=== PATIENT | male | born 1950 | race Asian ===

== ENCOUNTER 2018-11-03 06:23 | Day surgery (SDC) | payer OTHER ==
[~2018-11-03] VITALS: Ht 165.1 cm; Wt 64.1 kg
[~2018-11-03 06:23] MED LIST: SODIUM CHLORIDE 0.9% 1,000 ML IV ONE
[2018-11-03] MEDS ORDERED: LIDOCAINE 4% 50 ML SOLUTION TP ONE (06:24)
[2018-11-03] MEDS ORDERED: LIDOCAINE 2% 30 ML JELLY TP ONE (06:24)
[2018-11-03] MEDS ORDERED: ALBUTEROL SULFATE 2.5 MG/0.5 ML NEB SOLUTION NEB ONE (06:24)
[2018-11-03] MEDS ORDERED: BENZOCAINE 20% 50 MCG/SPRAY 57 GM TP ONE (06:24)
[2018-11-03] MEDS ORDERED: SODIUM CHLORIDE 0.9% 1,000 ML IV ONE (07:00)
[2018-11-03] MEDS ORDERED: LOSA1TAB37 PO (07:03)
[2018-11-03] MEDS ORDERED: IPRA4AER IH (07:03)
[2018-11-03] MEDS ORDERED: MOME13HF IH (07:03)
[2018-11-03] MEDS ORDERED: MIDAZOLAM HCL 2 MG/2 ML VIAL ONE (07:33)
[2018-11-03] MEDS ORDERED: FentaNYL CITRATE-PF 100 MCG/2 ML VIAL ONE (07:33)
[2018-11-03] MEDS ORDERED: MethylPREDNISolone SOD SUCC 125 MG/2 ML VIAL IVP ONE ×2 (09:00)
[2018-11-03] MEDS ORDERED: MethylPREDNISolone SOD SUCC 125 MG/2 ML VIAL ONE (09:03)
[2018-11-03] MEDS ORDERED: OXYGEN THERAPY IH SCH ×2 (20:00)
== END 2018-11-03 10:40 | disposition home or self-care (01) ==
LOC: SURGERY 06:23
PROVIDERS: ATTEND Internal Medicine Critical Care Medicine
DX: J38.4 Edema of larynx (principal); B37.0 Candidal stomatitis; J45.909 Unspecified asthma, uncomplicated; J98.8 Other specified respiratory disorders; I10 Essential (primary) hypertension; Z79.899 Other long term (current) drug therapy; Z98.890 Other specified postprocedural states
CPT/HCPCS: 31623; 31624; 71045; 87015; 87070; 87101; 87205; 87206; 87220; 88108; 88312; J2250; J2930; J3010; J7030

== ENCOUNTER 2021-11-13 05:52 | Day surgery (SDC) | payer MEDICARE, OTHER ==
[~2021-11-13] VITALS: Ht 168 cm; Wt 62.7 kg
[~2021-11-13 05:52] MED LIST changes: +IPRA4AER IH; +LOSA1TAB37 PO; +MOME13HF IH; -SODIUM CHLORIDE 0.9% 1,000 ML IV ONE
[2021-11-13] MEDS ORDERED: LIDOCAINE 2% 11 ML JELLY TP ONE (05:53)
[2021-11-13] MEDS ORDERED: ALBUTEROL SULFATE 2.5 MG/0.5 ML NEB SOLUTION NEB ONE (05:53)
[2021-11-13] MEDS ORDERED: LIDOCAINE 4% 50 ML SOLUTION TP ONE (05:53)
[2021-11-13] MEDS ORDERED: BENZOCAINE 20% 50 MCG/SPRAY 57 GM TP ONE (05:53)
[2021-11-13] MEDS ORDERED: SODIUM CHLORIDE 0.9% 1,000 ML IV ONE (06:45)
[2021-11-13 06:58] LABS: COVID AG,FIA SOURCE NASAL SWAB
[2021-11-13] MEDS ORDERED: MIDAZOLAM HCL 2 MG/2 ML VIAL ONE (07:57)
[2021-11-13] MEDS ORDERED: FentaNYL CITRATE PF 100 MCG/2 ML VIAL ONE (07:58)
[2021-11-13] MEDS ORDERED: MethylPREDNISolone SOD SUCC 125 MG/2 ML VIAL IVP ONE ×2 (09:30→10:00)
[2021-11-13] MEDS ORDERED: MethylPREDNISolone SOD SUCC 125 MG/2 ML VIAL ONE (09:33)
[2021-11-13] MEDS ORDERED: OXYGEN THERAPY IH SCH (20:00)
== END 2021-11-13 12:05 | disposition home or self-care (01) ==
LOC: SURGERY 05:52
PROVIDERS: ATTEND Internal Medicine Critical Care Medicine
DX: J38.4 Edema of larynx (principal); B37.0 Candidal stomatitis; J39.8 Other specified diseases of upper respiratory tract; I10 Essential (primary) hypertension; F17.210 Nicotine dependence, cigarettes, uncomplicated; Z98.49 Cataract extraction status, unspecified eye; Z90.49 Acquired absence of other specified parts of digestive tract; Z98.890 Other specified postprocedural states; Z79.899 Other long term (current) drug therapy; Z72.89 Other problems related to lifestyle; Z79.82 Long term (current) use of aspirin
CPT/HCPCS: 31623; 88112; 87206; 87101; 87220; 87070; 88305; 88312; 31624; 71045; 87015; 87426; J3010; J2250; J2930; Q9967; C9803; J7613; Z7610

== ENCOUNTER 2024-06-24 06:46 | Day surgery (SDC) | payer MEDICARE, OTHER ==
[~2024-06-24] VITALS: Ht 167.6 cm; Wt 62.6 kg
[~2024-06-24 06:46] MED LIST changes: -MOME13HF IH; +MOME13HF11 IH; +SODIUM CHLORIDE 0.9% 1,000 ML ONE
[2024-06-24] MEDS ORDERED: LIDOCAINE 2% 11 ML JELLY TP ONE (06:47)
[2024-06-24] MEDS ORDERED: ALBUTEROL SULFATE 2.5 MG/0.5 ML NEB SOLUTION NEB ONE (06:47)
[2024-06-24] MEDS ORDERED: LIDOCAINE 4% 50 ML SOLUTION TP ONE (06:47)
[2024-06-24] MEDS ORDERED: BENZOCAINE 20% 50 MCG/SPRAY 57 GM TP ONE (06:47)
[2024-06-24] MEDS: SODIUM CHLORIDE 0.9% 1,000 ML IV ONE (07:28)
[2024-06-24] MEDS ORDERED: MIDAZOLAM HCL 2 MG/2 ML VIAL ONE (07:55)
[2024-06-24] MEDS ORDERED: FentaNYL CITRATE PF 100 MCG/2 ML VIAL ONE (07:55)
[2024-06-24 09:00] VITALS: PULSE 92; RESP 18; O2SAT 97
[2024-06-24] MEDS ORDERED: MethylPREDNISolone SOD SUCC 125 MG/2 ML VIAL ONE (09:20)
[2024-06-24] MEDS: MethylPREDNISolone SOD SUCC 125 MG/2 ML VIAL IVP ONE (09:23)
== END 2024-06-24 14:05 | disposition home or self-care (01) ==
LOC: SURGERY 06:46
PROVIDERS: ATTEND Internal Medicine Critical Care Medicine
DX: R05.3 Chronic cough (principal); R04.2 Hemoptysis; J38.4 Edema of larynx; B37.0 Candidal stomatitis; F41.9 Anxiety disorder, unspecified; F32.A Depression, unspecified; Z90.49 Acquired absence of other specified parts of digestive tract; I10 Essential (primary) hypertension; Z98.890 Other specified postprocedural states; Z87.891 Personal history of nicotine dependence; Z79.899 Other long term (current) drug therapy
CPT/HCPCS: 31623; 87206; 87101; 87220; 87070; 31624; 71045; 87015; J3010; J2250; J2919; J7030; 88108; J7613; Z7610